=== PATIENT | female | born 1955 | race Caucasian/White ===

== ENCOUNTER 2017-02-05 19:40 | Emergency (ER) | payer OTHER ==
[2017-02-05 22:10] VITALS: BP 95/57
== END 2017-02-05 22:10 | disposition home or self-care (01) ==
LOC: ED 19:40
DX: J20.9 Acute bronchitis, unspecified (principal); J01.90 Acute sinusitis, unspecified
CPT/HCPCS: G0480; J3490; J7620

== ENCOUNTER 2017-09-25 07:04 | Emergency (ER) | payer OTHER ==
[~2017-09-25] VITALS: Ht 157.5 cm; Wt 58.0 kg
[2017-09-25 07:17] VITALS: Ht 157.5 cm; Wt 58.0 kg
[2017-09-25] MEDS ORDERED: LOMOTIL1 TAB PO (07:43)
[2017-09-25] MEDS ORDERED: METAMUCIL POWD538 GM PO (07:47)
[2017-09-25 09:52] VITALS: BP 122/64
== END 2017-09-25 09:54 | disposition home or self-care (01) ==
LOC: ED 07:04
DX: M54.5 Low back pain (principal); Z85.038 Personal history of other malignant neoplasm of large intestine
CPT/HCPCS: J3010

== ENCOUNTER 2018-06-12 05:11 | Emergency (ER) | payer OTHER ==
[~2018-06-12] VITALS: Ht 154.9 cm; Wt 59.0 kg
[~2018-06-12 05:11] MED LIST: LOMOTIL1 TAB PO; METAMUCIL POWD538 GM PO
[2018-06-12 05:19] VITALS: Ht 154.9 cm; Wt 59.0 kg
[2018-06-12 07:38] LABS: PLATELET COUNT 263 x10^3mcL (130-400); RED CELL DISTRIBUTION WIDTH 14.1 % (11.5-14.5)
[2018-06-12 07:43] LABS: BASOPHIL % 0 % (0-2)
[2018-06-12 07:57] LABS: CALCIUM 8.7 mg/dL (8.5-10.1); CARBON DIOXIDE 28.1 mmol/L (21-32); CHLORIDE SERUM 105 mmol/L (98-107); CREATININE SERUM 0.8 mg/dL (0.6-1.0); GFR1 > 60 mL/min; GLUCOSE SERUM 113 mg/dL (74-106); POTASSIUM SERUM 3.9 mmol/L (3.5-5.1); SODIUM SERUM 140 mmol/L (136-145)
[2018-06-12 08:09] LABS: ALBUMIN 3.6 g/dL (3.4-5.0); ALKALINE PHOSPHATASE 130 U/L (46-116); ALT/SGPT 21 U/L (14-59); AST/SGOT 14 U/L (15-37); BILIRUBIN TOTAL 0.37 mg/dL (0.20-1.00); C REACTIVE PROTEIN 5.4 mg/dL (<=0.9); TOTAL PROTEIN, SERUM 7.3 g/dL (6.4-8.2); URIC ACID 3.3 mg/dL (2.6-6.0)
[2018-06-12 09:18] VITALS: BP 107/71
== END 2018-06-12 09:19 | disposition home or self-care (01) ==
LOC: ED 05:11
PROVIDERS: Emergency Medicine
DX: M25.562 Pain in left knee (principal); E11.9 Type 2 diabetes mellitus without complications; M81.0 Age-related osteoporosis without current pathological fracture; Z85.038 Personal history of other malignant neoplasm of large intestine
CPT/HCPCS: 36415

== ENCOUNTER 2019-11-24 05:49 | Emergency (ER) | payer OTHER ==
[~2019-11-24] VITALS: Ht 157.5 cm; Wt 58.5 kg
[2019-11-24 06:01] VITALS: Ht 157.5 cm; Wt 58.5 kg
[2019-11-24 07:18] VITALS: BP 126/61
== END 2019-11-24 07:18 | disposition home or self-care (01) ==
LOC: ED 05:49
DX: S93.602A Unspecified sprain of left foot, initial encounter (principal); W01.0XXA Fall on same level from slipping, tripping and stumbling without subsequent striking against object, initial encounter; Y93.89 Activity, other specified; Y92.89 Other specified places as the place of occurrence of the external cause; Y99.8 Other external cause status
CPT/HCPCS: Q0092